=== PATIENT | female | born 1980 ===

== ENCOUNTER 2022-05-30 13:40 | Outpatient (CLI) | payer OTHER | END 2022-05-30 14:38 | disposition home or self-care (01) | LOC: PRENATAL 13:40 | PROVIDERS: ATTEND Obstetrics & Gynecology Maternal & Fetal Medicine | DX: O36.80X0 Pregnancy with inconclusive fetal viability, not applicable or unspecified (principal); O09.519 Supervision of elderly primigravida, unspecified trimester; Z3A.13 13 weeks gestation of pregnancy ==